=== PATIENT | female | born 1975 ===

== ENCOUNTER 2024-11-14 12:45 | Day surgery (SDC) | payer OTHER ==
[~2024-11-14 12:45] MED LIST: BACTRIM DS TAB1 EACH PO; DICLOFENAC POTA50 MG PO; TENORMIN25 MG PO; [UNRECOGNIZED DRUG - OTHER]
[2024-11-14] MEDS ORDERED: POVIDONE-IODINE 118 ML BOTT TOP ONE (16:04)
[2024-11-14] MEDS ORDERED: CEFAZOLIN SODIUM 1,000 MG VIAL ONE (16:05)
[2024-11-14] MEDS ORDERED: KETOROLAC TROMETHAMINE 60 MG VIAL IM STA (17:47)
[2024-11-14] MEDS ORDERED: IBU400 MG PO (17:50)
[2024-11-14] MEDS ORDERED: ZITHROMAX500 MG PO (17:50)
[2024-11-14] MEDS ORDERED: RINGERS SOLUTION,LACTATED 1,000 ML IV SCH (18:00)
[2024-11-14] MEDS ORDERED: KETOROLAC TROMETHAMINE 60 MG VIAL IM ONE (20:09)
== END 2024-11-14 22:55 | disposition home or self-care (01) ==
LOC: CIR.AMB 12:45
PROVIDERS: ATTEND Obstetrics & Gynecology
DX: N84.0 Polyp of corpus uteri (principal)